=== PATIENT | female | born 1945 | race Hispanic/Latino ===

== ENCOUNTER 2022-09-26 08:30 | Outpatient (CLI) | payer MEDICARE, SELFPAY ==
--- NOTE | ~2022-09-26 | XR_ITS ---
Lumbosacral Spine: AP and lateral views Clinical History: Pain Findings: The normal lordotic curve is maintained. The vertebral bodies and posterior elements are i ntact. There is moderate degenerative disc narrowing at L4-L5 and L5-S1. There is moderate to advance d facet arthropathy from L3 through S1. The sacroiliac joints are normally outlined. Impression: Moderate degenerative spondylosis, as detailed above. Reviewed, dictated and finalized at location M. Impression: Moderate degenerative spondylosis, as detailed above.
--- NOTE | ~2022-09-26 | XR_ITS ---
Cervical Spine: AP, lateral, open-mouth views Clinical History: Pain Findings: The normal lordotic curve is maintained. The vertebral bodies and posterior elements appea r intact. The intervertebral disc spaces are well maintained. Pre-vertebral soft tissues are unremar kable. Impression: No significant abnormality is seen. Reviewed, dictated and finalized at [facility]. Impression: No significant abnormality is seen.
--- NOTE | ~2022-09-26 | XR_ITS ---
Thoracic spine: Clinical Indication: Back pain AP and lateral views were performed. No fracture is seen. Probable 3 mm retrolisthesis of T12 over L1. There is advanced degenerative disc narrowing at T12-L1. There are mild scattered degenerative disc changes in the thoracic spine otherw ise. Paravertebral soft tissues appear normal. Impression: 3 mm retrolisthesis of T12 over L1. Degenerative disc changes, as detailed above. Reviewed, dictated and finalized at location . Impression: 3 mm retrolisthesis of T12 over L1. Degenerative disc changes, as detailed above.
== END 2022-09-26 08:31 | disposition home or self-care (01) ==
PROVIDERS: PCP Family Medicine; Visit Provider Family Medicine
DX: M47.812 Spondylosis without myelopathy or radiculopathy, cervical region (principal); G89.29 Other chronic pain; M47.816 Spondylosis without myelopathy or radiculopathy, lumbar region
CPT/HCPCS: 72040; 72070; 72100

== ENCOUNTER 2022-11-14 11:49 | Outpatient (CLI) | payer MEDICARE, SELFPAY ==
--- NOTE | ~2022-11-14 | XR_ITS ---
EXAMINATION: XR clavicle RT, XR AC joint BI DATE: 11/14/2022 12:25 INDICATION: Right shoulder pain TECHNIQUE: 1. AP and cephalad angled AP view of the right clavicle were obtained. 2. AP view of the bilateral acromioclavicular joints were obtained without and with weightbearing. COMPARISON: Right shoulder radiographs dated 11/14/2022 FINDINGS: Widening of the left acromioclavicular joint likely related to prior distal clavicle resection and antunez ture anchor at the left humeral head likely related to other prior rotator cuff repair or biceps teno desis. Alignment is otherwise normal. No fractures. Mild osteoarthritis at the right acromioclavicula r joint. Small marginal osteophytes at both the left and right glenoid consistent with additional mil d bilateral glenohumeral osteoarthritis. Small loose body along the inferior rim of the right glenoid . Mild cystic change at the cephalad rim of the left glenoid. Visualized portion of the lungs are delio ar. No pneumothorax. IMPRESSION: 1. 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 No acute oss eous abnormality. 2. Postoperative change of the left shoulder including distal left clavicle resection and suture anch or at the left humeral head. Reviewed, dictated and finalized at location L. IMPRESSION: 1. Mild osteoarthritis at the right acromioclavicular and bilateral glenohumera l joints. No acute osseous abnormality. 2. Postoperative change of the left shoulder including distal left clavicle res ection and suture anchor at the left humeral head.
--- NOTE | ~2022-11-14 | XR_ITS ---
Right Shoulder Technique: AP and scapular Y views were obtained. Clinical History: Pain Findings: No fracture or dislocation is seen. Osseous alignment is anatomic. There is mild AC joint d egenerative change. Glenohumeral joint is intact.. Soft tissues are unremarkable. Impression: Mild AC joint degenerative change. Reviewed, dictated and finalized at location . Impression: Mild AC joint degenerative change.
== END 2022-11-14 11:50 | disposition home or self-care (01) ==
PROVIDERS: PCP Family Medicine; Visit Provider Physician Assistant
DX: M21.921 Unspecified acquired deformity of right upper arm (principal); M19.011 Primary osteoarthritis, right shoulder
CPT/HCPCS: 73000; 73030; 73050